=== PATIENT | female | born 1940 | race Caucasian/White ===

== ENCOUNTER 2021-04-18 22:07 | Inpatient (IN) | payer MEDICARE, OTHER ==
[~2021-04-18] VITALS: Ht 165.1 cm; Wt 55.8 kg
[2021-04-18] MEDS ORDERED: NS 1,000 ML IV ONE (22:20)
[2021-04-18] MEDS ORDERED: ACETAMINOPHEN 650 MG SUPP PR ONE (22:20)
[2021-04-18 22:24] LABS: ABG BASE EXCESS -24.6 (-2.0-2.0); ABG O2 SATURATION 91.9 % (95.0-99.0); ABG PARTIAL PRESSURE CO2 20.5 mmHg (35.0-45.0); ABG PARTIAL PRESSURE O2 133.5 mmHg (75.0-100.0); ABG STANDARD HCO3 6.9 MEQ/L (22.0-26.0); ABG TOTAL CO2 5.6 MEQ/L (23.0-31.0)
[2021-04-18 22:26] LABS: ABG pH (ARTERIAL) 7.004 UNITS (7.350-7.450)
[2021-04-18] MEDS ORDERED: PROPOFOL 1,000 MG/100 ML VIAL As Ordered ONE (22:28)
[2021-04-18] MEDS ORDERED: MIDAZOLAM 5MG/ML 1ML VIAL (J2250 PER 1MG) As Ordered ONE (22:29)
[2021-04-18] MEDS ORDERED: ETOMIDATE INJ 20MG/10ML VIAL IV STA (22:31)
[2021-04-18] MEDS ORDERED: ROCURONIUM BROMIDE 50 MG/5 ML VIAL IV SCH (22:35)
[2021-04-18] MEDS ORDERED: MIDAZOLAM INJ 2MG/2ML VIAL (J2250 PER 1MG) IV ONE (22:35)
[2021-04-18] MEDS ORDERED: REFRIGERATOR IV KEYS XX PRN (22:35)
[2021-04-18] MEDS ORDERED: MIDAZOLAM HCL 100 MG in D5W 80 ML IV SCH (22:45)
[2021-04-18 23:06] LABS: ACETAMINOPHEN LEVEL < 2.0 UG/ML (10.0-30.0); ALBUMIN 1.8 GM/DL (3.2-5.2); ALT/SGPT 32 U/L (12-78); BILIRUBIN,DIRECT 0.2 MG/DL (0.0-0.2); BILIRUBIN,TOTAL 0.3 MG/DL (0.2-1.0); BLOOD UREA NITROGEN 13 MG/DL (7-18); CALCIUM LEVEL 7.8 MG/DL (8.8-10.2); CARBON DIOXIDE LEVEL 10 MEQ/L (21-32); CHLORIDE LEVEL 110 MEQ/L (98-107); CREATININE FOR GFR 1.61 MG/DL (0.55-1.30); ETHYL ALCOHOL (ETHANOL) < 0.003 % (0.000-0.010); GLOMERULAR FILTRATION RATE 32.9 (>39); GLUCOSE, FASTING 379 MG/DL (70-100); POTASSIUM SERUM 4.2 MEQ/L (3.5-5.1); SALICYLATE LEVEL < 1.7 MG/DL (5.0-30.0); SODIUM LEVEL 140 MEQ/L (136-145); TOTAL PROTEIN 6.1 GM/DL (6.4-8.2)
[2021-04-18 23:09] LABS: AMPHETAMINES LEVEL URINE NEGATIVE (NEGATIVE); BARBITURATES URINE NEGATIVE (NEGATIVE); BENZODIAZEPINES URINE NEGATIVE (NEGATIVE); CANNABINOIDS URINE NEGATIVE (NEGATIVE); COCAINE METABOLITE URINE NEGATIVE (NEGATIVE); METHADONE URINE NEGATIVE (NEGATIVE); OPIATES URINE NEGATIVE (NEGATIVE); PHENCYCLIDINE URINE NEGATIVE (NEGATIVE)
[2021-04-18 23:10] LABS: OSMOLALITY SERUM 304 MOSM/KG (280-301)
[2021-04-18 23:28] LABS: HEMATOCRIT 34.9 % (36.0-47.0); HEMOGLOBIN 9.9 g/dl (12.0-15.5); MEAN CORPUSCULAR HGB CONC 28.4 g/dl (32.0-36.5); MEAN CORPUSCULAR VOLUME 98.9 fl (80.0-96.0); PLATELET COUNT, AUTOMATED 340 10^3/uL (150-450); RED BLOOD COUNT 3.53 10^6/uL (4.00-5.40)
[2021-04-18] MEDS ORDERED: NS 1,670 ML in IV 1 EA IV ONE (23:30)
[2021-04-18] MEDS ORDERED: PIPERACILLIN/TAZOBACTAM SOD 4.5 GM in D5W MINI-BAG PLUS 50 ML IV ONE (23:30)
[2021-04-19] MEDS ORDERED: HumaLOG INSULIN (NovoLOG) PER UNIT SC SCH
[2021-04-19 00:04] LABS: LYMPHOCYTES 3 % (16-44); METAMYELOCYTES 3 % (0-0); MONOCYTES 3 % (0-5); MYELOCYTES 1 % (0-0); NEUTROPHILS 86 % (28-66); PLATELET ESTIMATE NORMAL (NORMAL)
[2021-04-19 00:05] LABS: ANISOCYTOSIS 2+
[2021-04-19 00:27] LABS: ABG STANDARD HCO3 10.2 MEQ/L (22.0-26.0)
[2021-04-19 00:28] LABS: ABG BASE EXCESS -18.9 (-2.0-2.0); ABG HCO3 9.5 MEQ/L (22.0-26.0); ABG O2 SATURATION 92.6 % (95.0-99.0); ABG PARTIAL PRESSURE CO2 31.4 mmHg (35.0-45.0); ABG PARTIAL PRESSURE O2 148.3 mmHg (75.0-100.0); ABG TOTAL CO2 10.4 MEQ/L (23.0-31.0)
[2021-04-19 00:29] LABS: ABG pH (ARTERIAL) 7.098 UNITS (7.350-7.450)
[2021-04-19] MEDS ORDERED: REFRIGERATOR IV KEYS XX PRN (02:00)
[2021-04-19] MEDS ORDERED: MIDAZOLAM HCL 100 MG in D5W 80 ML IV SCH (02:00)
[2021-04-19] MEDS ORDERED: SODIUM CHLORIDE 0.9% 1000ML IV SCH (02:15)
[2021-04-19] MEDS ORDERED: MORPHINE 2 MG/ML 1ML VIAL (J2270) IV PRN (02:15)
[2021-04-19] MEDS ORDERED: VANCOMYCIN HCL 1,000 MG, VIAL MATE ADAPTER 1 EACH in NS 250 ML IV SCH (02:15)
[2021-04-19] MEDS ORDERED: DEXTROSE 50% 50 ML SYRINGE IV PRN (02:30)
[2021-04-19] MEDS ORDERED: GLUCOSE 4GM CHEW TABLET PO PRN (02:30)
[2021-04-19] MEDS ORDERED: GLUCAGON INJ 1MG VIAL SC PRN (02:30)
[2021-04-19] MEDS ORDERED: VANCOMYCIN HCL 1,000 MG, VIAL MATE ADAPTER 1 EACH in NS 250 ML IV ONE (03:00)
[2021-04-19 03:40] LABS: ABG BASE EXCESS -16.6 (-2.0-2.0); ABG HCO3 10.4 MEQ/L (22.0-26.0); ABG O2 SATURATION 92.2 % (95.0-99.0); ABG PARTIAL PRESSURE CO2 29.1 mmHg (35.0-45.0); ABG STANDARD HCO3 11.6 MEQ/L (22.0-26.0); ABG TOTAL CO2 11.3 MEQ/L (23.0-31.0)
[2021-04-19 03:41] LABS: ABG pH (ARTERIAL) 7.173 UNITS (7.350-7.450)
[2021-04-19 03:45] VITALS: BP 136/62
[2021-04-19] MEDS ORDERED: ONDA4TAB6 PO (03:53)
[2021-04-19] MEDS ORDERED: ASPI-161 PO (03:53)
[2021-04-19] MEDS ORDERED: ATEN50TA2 PO (03:53)
[2021-04-19] MEDS ORDERED: REXU1TAB2 PO (03:53)
[2021-04-19] MEDS ORDERED: LOSA50TA28 PO (03:53)
[2021-04-19] MEDS ORDERED: DULO60CA35 PO (03:53)
[2021-04-19] MEDS ORDERED: OMEP-221 PO (03:53)
[2021-04-19] MEDS ORDERED: GLIP2.5T6 PO (03:53)
[2021-04-19] MEDS ORDERED: HYDR-4571 PO (03:53)
[2021-04-19] MEDS ORDERED: AMLO1TAB24 PO (03:53)
[2021-04-19] MEDS ORDERED: BASA100I SC (03:53)
[2021-04-19] MEDS ORDERED: CREO24CA PO (03:53)
[2021-04-19] MEDS ORDERED: NITR4TASL SL (03:53)
[2021-04-19] MEDS ORDERED: CYCL10TA20 PO (03:53)
[2021-04-19] MEDS ORDERED: ESTR1CRE VA (03:53)
[2021-04-19] MEDS ORDERED: MAGN500T2 PO (03:53)
[2021-04-19] MEDS ORDERED: HOME MED LIST COMPLETE! XX SCH (03:55)
[2021-04-19] MEDS ORDERED: HYOSCYAMINE SULFATE 0.125 MG SUBL TABLET PO PRN (04:00)
[2021-04-19] MEDS ORDERED: SCOPOLAMINE 1MG TRANSDERMAL PATCH TOP PRN (04:00)
[2021-04-19] MEDS ORDERED: ACETAMINOPHEN 650 MG SUPP PR PRN (04:00)
[2021-04-19] MEDS ORDERED: ATROPINE SULFATE 1% OP SOLN 2 ML BTL SL PRN (04:00)
[2021-04-19] MEDS ORDERED: LORazepam 2 MG/ML VIAL IV PRN (04:00)
[2021-04-19] MEDS ORDERED: PIPERACILLIN/TAZOBACTAM SOD 3.375 GM in D5W MINI-BAG PLUS 50 ML IV SCH (06:00)
[2021-04-19] MEDS ORDERED: HEPARIN SOD (PORCINE) 5000UNITS/ML 1ML VIAL/SYRINGE SC SCH (06:00)
[2021-04-19] MEDS ORDERED: EPINEPHrine 1MG/10ML SYRINGE 1.5IN ONE (06:09)
[2021-04-19] MEDS ORDERED: IPRATROPIUM 0.5MG/ALBUTEROL 2.5MG INH SOL UD 3ML (DUONEB) NEB SCH (08:00)
[2021-04-19] MEDS ORDERED: CHLORHEXIDINE GLUCONATE 0.12 % 15ML UDC (PERIDEX ORAL RINSE) MT SCH (09:00)
[2021-04-19] MEDS ORDERED: PANTOPRAZOLE 40MG VIAL (C9113 PER 1) IV SCH (09:00)
[2021-04-20] MEDS ORDERED: UNRESOLVED CLARIFICATION ENTRY XX SCH (00:01)
== END 2021-04-19 06:10 | disposition expired | DRG 871 ==
LOC: M ED 22:07 → M ED INP 04-19 02:14 → M PCU 04-19 05:22
PROVIDERS: ADMIT Internal Medicine Pulmonary Disease; ATTEND Internal Medicine Pulmonary Disease
DX: A41.9 Sepsis, unspecified organism (principal); G93.41 Metabolic encephalopathy; J96.00 Acute respiratory failure, unspecified whether with hypoxia or hypercapnia; E87.2 Acidosis; K86.1 Other chronic pancreatitis; E46 Unspecified protein-calorie malnutrition; N17.9 Acute kidney failure, unspecified; N39.0 Urinary tract infection, site not specified; E72.20 Disorder of urea cycle metabolism, unspecified; I25.10 Atherosclerotic heart disease of native coronary artery without angina pectoris; Z66 Do not resuscitate; I10 Essential (primary) hypertension; M06.9 Rheumatoid arthritis, unspecified; K74.60 Unspecified cirrhosis of liver; E88.09 Other disorders of plasma-protein metabolism, not elsewhere classified; R65.20 Severe sepsis without septic shock; Z88.8 Allergy status to other drugs, medicaments and biological substances; Z79.82 Long term (current) use of aspirin; Z79.899 Other long term (current) drug therapy; Z79.4 Long term (current) use of insulin; E11.65 Type 2 diabetes mellitus with hyperglycemia; I46.9 Cardiac arrest, cause unspecified; D64.9 Anemia, unspecified